=== PATIENT | female | born 2005 | race Caucasian/White ===

== ENCOUNTER 2024-07-13 18:40 | Emergency (ER) | payer OTHER ==
[~2024-07-13] VITALS: Ht 165.1 cm; Wt 61.2 kg
[2024-07-13 18:50] VITALS: BP 138/99
[2024-07-13] MEDS ORDERED: ZOLOFT 50MG50 MG PO (19:02)
[2024-07-13] MEDS ORDERED: TRIAMCINOLONE A15 G2 TP (19:38)
== END 2024-07-13 19:49 | disposition home or self-care (01) ==
LOC: ED 18:40
DX: L30.9 Dermatitis, unspecified (principal); R15.9 Full incontinence of feces